=== PATIENT | female | born 1970 | race Caucasian/White ===

== ENCOUNTER 2018-07-03 13:17 | Inpatient (IN) | payer MEDICAID ==
[~2018-07-03] VITALS: Ht 165.1 cm; Wt 83.9 kg
--- NOTE | 2018-07-03 13:20 | NUR ---
POISON CONTROL REF# [id number] SPOKE WITH CODY SUGGESTED BMP, TOX, LITHIUM LEVELS; CONTINUOUS CARDIAC MONITORING, EKG, FLUIDS REPEAT LABS TO IDENTIFY IF EARLY KIDNEY FAILURE OR LITHIUM RISE.
[2018-07-03 13:25] VITALS: BP 93/54
--- NOTE | 2018-07-03 13:25 | NUR ---
BIBA. PER EMS PT HAD AN OVERDOSE OF LITHIUM. PT TOOK 1800 MG OF LITHIUM. PRESCRIBED DOSAGE IS 300 MG X 2 A DAY. PT CAME FROM [facility] [place] IN [place]. + [facility]ETH LAST 24 HRS PER [facility]. AAOX4. PERRLA, BRISK 3MM. EVEN LAMIN UPPER AND LOWER STRENGTH. NO FACIAL DROOPING. CLEAR SPEECH. HOB UP. BED SIDE RAILS UP X1. ON LOW BED POSITION, LOCKED. ER MADE AWARE OF PT STATUS.
--- NOTE | 2018-07-03 13:30 | NUR ---
DR ZUÑIGA AT BEDSIDE FOR PT EVALUATION
--- NOTE | 2018-07-03 13:45 | NUR ---
PT IS ASLEEP. EASILY AROUSED BY VOICE.
[2018-07-03 14:09] LABS: BASOPHILS % (AUTO) 0.9 % (0.0-2.0); EOSINOPHILS # (AUTO) 0.6 K/uL (0-0.4); EOSINOPHILS % (AUTO) 15.7 % (0.0-4.0); HEMATOCRIT 36.4 % (36-48); HEMOGLOBIN 12.2 g/dL (12.0-16.0); LYMPHOCYTES % (AUTO) 25.1 % (20.5-51.1); MEAN CORPUSCULAR HEMOGLOBIN 31 pg (27-31); MEAN CORPUSCULAR HGB CONC 33 g/dL (33-37); MEAN CORPUSCULAR VOLUME 93.3 fL (80-94); MONOCYTES # (AUTO) 0.5 K/uL (0.8-1.0); NEUTROPHILS % (AUTO) 47.3 % (42.2-75.2); PLATELET COUNT (AUTO) 252 K/uL (140-450); RED CELL DISTRIBUTION WIDTH 15.1 % (11.6-13.7); WHITE BLOOD COUNT (AUTO) 4.1 K/uL (4.8-10.8)
[2018-07-03 14:19] LABS: ANION GAP 12.2 (8-16); CARBON DIOXIDE 27.1 mmol/L (21-32); CHLORIDE 106 mmol/L (98-107); CREATININE 0.8 mg/dL (0.6-1.3); GFR ARICAN-AMERICAN 99 mL/min (>90); GLUCOSE 111 mg/dL (74-106); POTASSIUM 3.3 mmol/L (3.5-5.1); SODIUM SERUM 142 mmol/L (136-145); UREA NITROGEN, BLOOD 12 mg/dL (7-18)
--- NOTE | 2018-07-03 14:23 | NUR ---
PT IS AAOX4. PT STATES SHE IS UNABLE TO GIVE URINE SPECIMEN AT THIS TIME.
[2018-07-03 14:25] LABS: ACETAMINOPHEN < 0.5 ug/ml (10-30); ALBUMIN 3.3 g/dL (3.4-5.0); ASPARTATE AMINOTRANSFERASE 27 U/L (15-37); SALICYLATE < 2.8 mg/dL (2.8-20.0); TOTAL BILIRUBIN 0.3 mg/dL (0.0-1.0)
--- NOTE | 2018-07-03 15:15 | NUR ---
AAOX4. CLEAR SPEECH. SLEEPY. NO SOB NOTED. VERBALIZED UNABLE TO GIVE SPECIMEN AT THIS TIME.
[2018-07-03] MEDS ORDERED: [UNRECOGNIZED DRUG - CODE] IH (15:34)
[2018-07-03] MEDS ORDERED: ALBU0.0912 IH (15:34)
[2018-07-03] MEDS ORDERED: BENZ-248 PO (15:34)
[2018-07-03] MEDS ORDERED: [UNRECOGNIZED DRUG - CODE] PO (15:34)
[2018-07-03] MEDS ORDERED: QUET300T1 PO (15:34)
[2018-07-03] MEDS ORDERED: NACL 0.9% 1,000 ML IV ONE ×2 (16:20→16:35)
--- NOTE | 2018-07-03 16:35 | NUR ---
SPOKE WITH CODY FROM POISON CONTROL-- NO LITHIUM LEVEL BACK; SUGGESTED TO MAINTAIN ADEQUATE HYDRATION AND REPEAT TO BMP TO ASSESS KIDNEY FUNCTION KEEP KIDNEYS FLUSHING LITHIUM OUT IF INDEED IT MAY BE HIGH
--- NOTE | 2018-07-03 16:55 | NUR ---
ASSITED PT TO GO TO THE BATHROOM FOR URINE SPECIMEN
[2018-07-03 17:10] LABS: APPEARANCE,URINE CLEAR (CLEAR); BILIRUBIN,URINE NEGATIVE (NEGATIVE); BLOOD, URINE NEGATIVE (NEGATIVE); COLOR,URINE YELLOW (YELLOW); LEUKOCYTE ESTERASE ,URINE NEGATIVE (NEGATIVE); NITRITE, URINE NEGATIVE (NEGATIVE); UGLUCOSE NEGATIVE (NEGATIVE)
[2018-07-03 17:22] LABS: BARBITURATE, URINE NEG. ng/ml (NEG <=200); BENZODIAZEPINE, URINE NEG. ng/mL (NEG <=200); CANNABINOID, URINE NEG. ng/mL (NEG <=50); COCAINE, URINE NEG. ng/mL (NEG <=300); OPIATE, URINE NEG. ng/mL (NEG <=2000); PHENCYCLIDINE SCREEN,URINE NEG. ng/mL (NEG <=25)
[2018-07-03 17:29] LABS: ANION GAP 9.6 (8-16); CARBON DIOXIDE 26.8 mmol/L (21-32); CREATININE 0.7 mg/dL (0.6-1.3); POTASSIUM 3.4 mmol/L (3.5-5.1)
--- NOTE | 2018-07-03 18:50 | NUR ---
Patient will be admitted to care of Dr. Horn. Admited to Tele. Will go to room 121 A. Belongings list completed. Report to MUMTAZ Villavicencio.
--- NOTE | 2018-07-03 18:55 | NUR ---
RECEIVED REPORT FROM ER. PATIENT ABLE TO AMBULATE FROM ER BED TO [facility] BED. AAOX3, CALM, COOPERATIVE, SKIN COLOR APPROPRIATE TO ETHNICITY, WARM TO TOUCH. IV SITE INTACT, PATENT, AND RUNNING NS BOLUS FROM ER. ORIENTED PATIENT TO ROOM AND CALL LIGHT. REVIEWED PLAN OF CARE WITH PATIENT. PATIENT VERBALIZED UNDERSTANDING. SAFETY MEASURES IN PLACE, CALL LIGHT WITHIN REACH. WILL CONTINUE TO MONITOR.
--- NOTE | 2018-07-03 19:25 | NUR ---
RECEIVED REPORT FROM DAY SHIFT NURSE. PT SITTING ON BED, AA0X4. NO C/O PAIN OR SOB. ON ROOM AIR.IV TO LEFT AC #20, PATENT AND INTACT. PT ABLE TO AMBULATE. SKIN INTACT. DISCUSSED PLAN OF CARE, PT VERBALIZED UNDERSTANDING. SAFETY PRECAUTION IN PLACE. CALL LIGHT WITHIN REACH.
--- NOTE | 2018-07-03 19:28 | NUR ---
GAVE REPORT TO INDUSTRIAL SPECIALIST NURSE FOR CONTINUITY OF CARE. PATIENT IN STABLE CONDITION.
--- NOTE | 2018-07-03 19:35 | NUR ---
PAGED DR. FOREMAN FOR IVF, MEDS, DIET ORDER, CODE STATUS. AWAITING FOR CALL BACK.
--- NOTE | 2018-07-03 19:45 | NUR ---
RECEIVED A CALL FROM DR. FOREMAN AND ORDERED IVF NS AT 100 ML/HR, REGULAR DIET, FULL CODE, TYLENOL 650 MG Q4H PRN FOR MILD PAIN, AM LABS FOR TOMORROW CBC AND CMP. DR. FOREMAN MADE AWARE OF PT'S K LEVEL 3.4. ORDERED K DUR 40 MEQ ONCE.
[2018-07-03] MEDS ORDERED: ACETAMINOPHEN 325 MG TAB PO PRN (19:55)
[2018-07-03 20:00] VITALS: BP 106/66
[2018-07-03] MEDS ORDERED: POTASSIUM CHLORIDE 10 MEQ TABER PO ONE (20:00)
[2018-07-03] MEDS: NACL 0.9% 1,000 ML IV SCH (20:11)
--- NOTE | 2018-07-03 20:11 | NUR ---
STARTED IVF NS AT 100 ML/HR. PT RESTING IN BED. DENIES PAIN OR SOB.
--- NOTE | 2018-07-03 20:30 | NUR ---
PT ASKED FOR SNACK. SNACK PROVIDED. PT DENIES NAUSEA/VOMITING. NEEDS MET AT THIS TIME. CALL LIGHT WITHIN REACH.
--- NOTE | 2018-07-03 21:36 | NUR ---
RECEIVED A CALL FROM CODY FROM POISON CONTROL, ASKING HOW PT DOING, RESULT OF LITHIUM LEVEL. PER CODY, IF WE HAVE QUESTIONS JUST CALL POISON CONTROL.
[2018-07-04] VITALS: BP 91/62
--- NOTE | 2018-07-04 | NUR ---
PT SLEEPING BUT EASILY AROUSABLE. CHECKED V/S, WNL. NO S/SO OF RESP DISTRESS.
--- NOTE | 2018-07-04 02:20 | NUR ---
PT SLEEPING. RESP EVEN AND UNLABORED. NO S/S OF PAIN OR DISCOMFORT. IVF INFUSING WELL.
[2018-07-04 04:00] VITALS: BP 99/59
--- NOTE | 2018-07-04 05:25 | NUR ---
IVF NS DONE. PT SLEEPING. NO S/S OF RESP DISTRESS. NO S/S OF PAIN OR DISCOMFORT.
--- NOTE | 2018-07-04 05:30 | NUR ---
HUNG NEW BAG OF NS 1L AT 100 ML/HR.
[2018-07-04] MEDS: NACL 0.9% 1,000 ML IV SCH ×2 (05:33→18:21)
[2018-07-04 06:22] LABS: BASOPHILS % (AUTO) 0.7 % (0.0-2.0); EOSINOPHILS # (AUTO) 0.7 K/uL (0-0.4); EOSINOPHILS % (AUTO) 13.9 % (0.0-4.0); HEMATOCRIT 35.9 % (36-48); LYMPHOCYTES # (AUTO) 1.7 K/uL (2.5-16.5); LYMPHOCYTES % (AUTO) 34.6 % (20.5-51.1); MEAN CORPUSCULAR HEMOGLOBIN 32 pg (27-31); MEAN CORPUSCULAR HGB CONC 34 g/dL (33-37); MEAN CORPUSCULAR VOLUME 94.1 fL (80-94); MONOCYTES # (AUTO) 0.5 K/uL (0.8-1.0); MONOCYTES % (AUTO) 10.4 % (1.7-9.3); NEUTROPHILS # (AUTO) 1.9 K/uL (1.8-7.7); NEUTROPHILS % (AUTO) 40.4 % (42.2-75.2); PLATELET COUNT (AUTO) 233 K/uL (140-450); RED BLOOD CELL COUNT(AUTO) 3.82 MIL/uL (4.20-5.40); RED CELL DISTRIBUTION WIDTH 15.4 % (11.6-13.7); WHITE BLOOD COUNT (AUTO) 4.8 K/uL (4.8-10.8)
[2018-07-04 06:39] LABS: ALBUMIN 2.5 g/dL (3.4-5.0); ANION GAP 11.1 (8-16); CARBON DIOXIDE 23.6 mmol/L (21-32); CREATININE 0.7 mg/dL (0.6-1.3); POTASSIUM 3.7 mmol/L (3.5-5.1); TOTAL BILIRUBIN 0.4 mg/dL (0.0-1.0)
--- NOTE | 2018-07-04 07:22 | NUR ---
ENDORSED PT TO DAY SHIFT NURSE. PT IN STABLE CONDITION.
--- NOTE | 2018-07-04 07:23 | NUR ---
SBAR REPORT RECEIVED AT PT BEDSIDE. PATIENT SLEEPING, EASILY AWAKENS. NO ACUTE DISTRESS NOTED. ALERT AND ORIENTED. DENIES PAIN. ON ROOM AIR, NO ACUTE RESPIRATORY DISTRESS NOTED. CALL LIGHT WITHIN REACH. UPDATED ON CURRENT PLAN OF CARE, IN AGREEMENT.
[2018-07-04 08:00] VITALS: BP 108/63
--- NOTE | 2018-07-04 08:18 | NUR ---
PATIENT HAS BEEN SCREENED AND CATEGORIZED MODERATE NUTRITION RISK. PATIENT WILL BE SEEN WITHIN 3-5 DAYS OF ADMISSION. 07/05/18[address]
[2018-07-04] MEDS ORDERED: ONDANSETRON 4 MG/2 ML VIAL IVP PRN (09:05)
[2018-07-04 10:13] LABS: CHOL/HDL RATIO 2.4 (1-4.5); FREE T4 (FREE THYROXINE) 1.04 ng/dL (0.76-1.46); MAGNESIUM 1.9 mg/dL (1.8-2.4); PHOSPHORUS 2.6 mg/dL (2.5-4.9); THYROID STIMULATING HORMONE 1.1 uIU/mL (0.34-3.74)
--- NOTE | 2018-07-04 10:35 | NUR ---
PATIENT SEEN BY DR. GARCIA AT PT BEDSIDE, PATIENT RESTING IN BED. NO ACUTE DISTRESS NOTED. NEW ORDERS RECEIVED, CONTINUE HOME MEDS AT THIS TIME.
[2018-07-04 12:00] VITALS: BP 106/73
[2018-07-04 12:10] LABS: PROTHROMBIN TIME 10.4 secs (10.8-13.4)
[2018-07-04 16:00] VITALS: BP 95/63
--- NOTE | 2018-07-04 16:06 | NUR ---
PATIENT SEEN BY DR. MCCANN, DOWNGRADE TO [facility] MONITORING. OKAY FOR PATIENT TO SHOWER. PATIENT AMBULATORY TO SHOWER, NO ACUTE DISTRESS NOTED.
--- NOTE | 2018-07-04 18:00 | NUR ---
PATIENT SITTING UP FOR DINNER. DENIES PAIN. NO S/S OF ACUTE DISTRESS NOTED. CALL LIGHT WITHIN REACH.
--- NOTE | 2018-07-04 19:25 | NUR ---
SBAR REPORT GIVEN TO RIB CLOTH KNITTER RN AT PT BEDSIDE. PATIENT RESTING IN BED, NO ACUTE DISTRESS NOTED.
--- NOTE | 2018-07-04 19:26 | NUR ---
RECEIVED REPORT FROM DAY SHIFT NURSE. AAOX4. DENIES PAIN OR SOB. ON ROOM AIR. IV TO LEFT AC #20G, NS AT 100 ML/HR INFUSING WELL. DISCUSSED PLAN OF CARE, PT VERBALIZED UNDERSTANDING. CALL LIGHT WITHIN REACH.
[2018-07-04 20:00] VITALS: BP 95/57
[2018-07-04] MEDS: DOCUSATE SODIUM 100 MG GELCAP PO SCH (20:26)
[2018-07-04] MEDS: LITHIUM CARBONATE 300 MG TAB PO SCH (20:26)
[2018-07-04] MEDS: QUEtiapine FUMARATE 100 MG TAB PO SCH (20:26)
[2018-07-04] MEDS: BENZTROPINE 1 MG TAB PO SCH (20:26)
--- NOTE | 2018-07-04 20:45 | NUR ---
PT ASKED FOR SNACK. SNACK PROVIDES. NEEDS MET AT THIS TIME. CALL LIGHT WITHIN REACH.
--- NOTE | 2018-07-04 23:30 | NUR ---
PT SLEEPING BUT EASILY AROUSABLE. NO S/S OF RESP DISTRESS. NO S/S OF PAIN OR DISCOMFORT. V/S TAKEN, WNL.
[2018-07-05] VITALS: BP 101/64
[2018-07-05] MEDS: NACL 0.9% 1,000 ML IV SCH ×2 (01:55→12:23)
--- NOTE | 2018-07-05 02:00 | NUR ---
PT SLEEPING. RESP EVEN AND UNLABORED. NO S/S OF PAIN. IVF INFUSING WELL.
--- NOTE | 2018-07-05 05:00 | NUR ---
PT SLEEPING BUT WAKES EASILY. NO S/S OF PAIN. NO S/S OF SOB.
--- NOTE | 2018-07-05 07:25 | NUR ---
ENDORSED PT TO DAY SHIFT NURSE. PT IN STABLE CONDITION.
--- NOTE | 2018-07-05 07:26 | NUR ---
GOT BEDSIDE REPORT FROM MUMTAZ SILVA. PATIENT AAOX4, AND ON ROOM AIR, NO DISTRESS NOTED. PATIENT ON MED SURGE. SKIN INTACT. PATIENT AMBULATORY. IV ON L AC 20 G INFUSING NS AT 100, IV ASYMPTOMATIC PATENT AND INTACT. BED IN LOW POSITION, CALL LIGHT WITHIN REACH, SIDE RAILS X2 UP
[2018-07-05 07:56] LABS: ANION GAP 10.3 (8-16); BASOPHILS # (AUTO) 0.1 K/uL (0.00-0.22); CARBON DIOXIDE 26.5 mmol/L (21-32); CREATININE 0.9 mg/dL (0.6-1.3); EOSINOPHILS # (AUTO) 0.7 K/uL (0-0.4); EOSINOPHILS % (AUTO) 13.1 % (0.0-4.0); HEMATOCRIT 37.1 % (36-48); HEMOGLOBIN 12.5 g/dL (12.0-16.0); LYMPHOCYTES # (AUTO) 1.7 K/uL (2.5-16.5); MAGNESIUM 1.6 mg/dL (1.8-2.4); MEAN CORPUSCULAR HEMOGLOBIN 32 pg (27-31); MEAN CORPUSCULAR HGB CONC 34 g/dL (33-37); MEAN CORPUSCULAR VOLUME 93.3 fL (80-94); MONOCYTES # (AUTO) 0.5 K/uL (0.8-1.0); NEUTROPHILS # (AUTO) 2.3 K/uL (1.8-7.7); NEUTROPHILS % (AUTO) 43.9 % (42.2-75.2); PHOSPHORUS 3.6 mg/dL (2.5-4.9); PLATELET COUNT (AUTO) 241 K/uL (140-450); POTASSIUM 3.8 mmol/L (3.5-5.1); RED BLOOD CELL COUNT(AUTO) 3.97 MIL/uL (4.20-5.40); RED CELL DISTRIBUTION WIDTH 15.3 % (11.6-13.7); WHITE BLOOD COUNT (AUTO) 5.3 K/uL (4.8-10.8)
[2018-07-05 08:00] VITALS: BP 101/58
[2018-07-05] MEDS: QUEtiapine FUMARATE 100 MG TAB PO SCH (09:00)
[2018-07-05] MEDS: BENZTROPINE 1 MG TAB PO SCH (09:00)
[2018-07-05] MEDS: LITHIUM CARBONATE 300 MG TAB PO SCH (09:00)
[2018-07-05] MEDS: DOCUSATE SODIUM 100 MG GELCAP PO SCH (09:00)
[2018-07-05] MEDS ORDERED: MAGNESIUM OXIDE 400 MG TAB PO SCH (10:00)
--- NOTE | 2018-07-05 10:21 | NUR ---
ADMINISTERED SCHEDULED MEDS. PATIENT TOLERATED WELL
--- NOTE | 2018-07-05 12:24 | NUR ---
PATIENT EATING LUNCH, ON ROOM AIR, NO DISTRESS NOTED
--- NOTE | 2018-07-05 16:03 | NUR ---
DISCHARGE INSTRUCTIONS PROVIDED TO PATIENT. FLU VACCINE UP TO DATE 03/2018 AND NOT CANDIDATE FOR PNA VACCINE. SKIN INTACT. EDUCATED TO FOLLOW UP WITH PSYCHIATRIST AND TO RETURN TO NEAREST ER WHEN SYMPTOMS LIKE SOB, FEVER, PAIN ETC OCCUR. EDUCATED TO CONTINUE WITH PRESCRIBED MEDICATIONS. PROVIDED PATIENT WITH BUS PASS AND ADDRESS FOR [facility]. PRESCRIPTION PROVIDED IN PACKET. REMOVED WRIST BAND AND IV, IV TIP INTACT. ANSWERED ALL QUESTIONS AND CONCERNS Addendum: 07/05/18 at 1631 by Krys Ryan RN PATIENT STATED SHE WOULD RATHER GO BACK HOME INSTEAD OF [facility] AND SHE WILL NOTIFY HER INVENTORY WORKER OF BEING ADMITTED TO THE HOSPITAL, CHARGE NURSE HARVEY WETZEL
--- NOTE | 2018-07-05 17:13 | NUR ---
CALLED [facility] SPOKE WITH TERRIE DIRECTOR HE TALKED TO MARCELA THE PATIENT AND CHECKED THAT SHE WAS ACCEPTED THERE BUT HAS NO TRANSPORT TO TAKE HER THERE BUT I EXPLAINED TO HIM SHE IS DISCHARGED AND WANTED TO GO TO [place] BY [place]. TERRIE SAID HE WILL MAKE EXCEPTIONAL NOT TO SEND HER TO [place] IF WE HAVE A TRANSPORT FOR HER I TALKED TO A OPERATING ROOM TECH AND OFFERED A [facility] VOUCHER . PATIENT WAS HAPPY TO GO THERE WAITING FOR [facility] STABLE CONDITION
== END 2018-07-05 16:20 | disposition home or self-care (01) | DRG 816 ==
LOC: MED 13:17 → MTU 18:20 → OBSVTOIN 07-04 09:11
PROVIDERS: ADMIT General Practice; ATTEND General Practice
DX: T56.891A Toxic effect of other metals, accidental (unintentional), initial encounter (principal); E43 Unspecified severe protein-calorie malnutrition; G92 Toxic encephalopathy; F31.9 Bipolar disorder, unspecified; Z91.5 Personal history of self-harm; Z81.8 Family history of other mental and behavioral disorders; Z88.8 Allergy status to other drugs, medicaments and biological substances; F41.9 Anxiety disorder, unspecified; F15.90 Other stimulant use, unspecified, uncomplicated; Y92.89 Other specified places as the place of occurrence of the external cause; E87.6 Hypokalemia; F25.9 Schizoaffective disorder, unspecified; Z68.30 Body mass index [BMI] 30.0-30.9, adult
CPT/HCPCS: 96360; 99285; G0378; 36415; 71045; 80048; 80053; 80178; 80305; 81003; 82150; 83036; 83690; 83735; 84100; 84439; 84443; 84484; 85025; 85610; 85730; 87081; 93005; G0480; G0482; J7030; Q0092